=== PATIENT | female | born 1995 | race Two or more races ===

== ENCOUNTER 2020-12-09 10:47 | Emergency (ER) | payer BC ==
--- NOTE | 2020-12-09 11:38 | EDM.PDOC ---
ED HPI GENERAL MEDICAL PROBLEM - General Chief Complaint: TRAVEL PTA Problem Stated Complaint: 16 WEEKS PREG/FALL/CRAMPING AND PAIN Time Seen by Provider: 12/09/20 10:59 Source of Information: Reports: Patient, RN Notes Reviewed History Limitations: Reports: No Limitations - History of Present Illness INITIAL COMMENTS - FREE TEXT/NARRATIVE: Patient is a 25-year-old female who presents to the ED for evaluation of her fall and abdomen pain. Patient is 16 weeks , she is a A2 with 2 spontaneous miscarriages. Patient notes she is from [place], so her TRAVEL PTA resides there. Patient notes about 1 week ago, she fell while she was getting her child out of her car, and landed onto her butt. She notes that it hurts to have bowel movements after this, and she has been having lower abdomen cramping since then, and it seems to be getting worse. She has had no bleeding per vagina, and no abnormal discharge or clear liquids that have been leaking. Patient notes that the has been going well otherwise, vitals are stable at time of triage pulse is 75 bpm, temperature is 97.4 F, respiratory rate of 14, blood pressure on the low side of normal at 94/63, and the patient's O2 sats 100% on room air. heart tones were found to be 150 bpm by triage nurse. Patient denies any other sick-like symptoms, fever/chills, cough/shortness of breath, nausea/vomiting/diarrhea. Lower Abdomen Pain Score (Numeric/FACES): 8 - Related Data Allergies Allergy/AdvReac Type Severity Reaction Status Date / Time No Known Allergies Allergy Verified 12/09/20 10:59 Home Meds: Home Meds . [No Known Home Meds] 12/09/20 [History] Past Medical History TRAVEL PTA History: Reports: , Spontaneous (x2) : 5 Para: 2 - Past Surgical History Musculoskeletal Surgical History: Reports: Other (See Below) Other Musculoskeletal Surgeries/Procedures:: ORIF right wrist with hardware still in Social & Family History - Tobacco Use Tobacco Use Status *Q: Never Tobacco User - Caffeine Use Caffeine Use: Reports: None - Recreational Drug Use Recreational Drug Use: No ED ROS GENERAL - Review of Systems Review Of Systems: Comprehensive ROS is negative, except as noted in HPI. ED EXAM - Physical Exam Exam: See Below Exam Limited By: No Limitations General Appearance: Alert, WD/WN, No Apparent Distress Respiratory/Chest: No Respiratory Distress, Lungs Clear, Normal Breath Sounds, No Accessory Muscle Use, Chest Non-Tender Cardiovascular: Normal Peripheral Pulses, Regular Rate, Rhythm, No Edema GI/Abdominal Exam: Normal Bowel Sounds, Soft, No Distention, No Mass, Tender (generalized) Heart Tones: Present Heart Tones per Min: 150 Movement: Not Appreciated Neurological: Alert, Oriented, Normal Cognition, No Motor/Sensory Deficits Psychiatric: Normal Affect, Normal Mood Skin Exam: Warm, Dry, Intact, Normal Color, No Rash Course - Vital Signs Last Recorded V/S: Last Vital Signs Temp 97.4 F 12/09/20 10:59 Pulse 75 12/09/20 10:59 Resp 14 12/09/20 10:59 BP 94/63 12/09/20 10:59 Pulse Ox 100 12/09/20 10:59 - Orders/Labs/Meds Orders: Active Orders 24 hr Category Date Time Status OB Ltd 1 or More Fetus [US] Stat Exams 12/09/20 11:08 Ordered - Re-Assessments/Exams Free Text/Narrative Re-Assessment/Exam: 12/09/20 11:36 Patient presents to the ED for evaluation of her fall in . Running on the clinical assumption that she may have either broken or bruised her tailbone, I suspect that bowel movements hurt, and that she might be slightly constipated causing some of the cramping. Were able to find heart tones without issue. We will go ahead and get ultrasound for evaluation of the fetus at this time. I did discuss with her the value of stool softeners to make the stool more soft so that it doesn't hurt when she uses the bathroom. Patient verbalized understanding. 12/09/20 11:57 [facility] ultrasound report is back, fetus is alive with a gestational age of 16 weeks 1 day with a heart rate at about 160 bpm. There is a 4.3 x 1.1 x 0.7 cm hypoechoic area along the inferior aspect of the right side of the placenta suspicious for a perigestational hemorrhage or subchorionic hemorrhage. I will make the patient aware, to watch out for any sort of vaginal bleeding, and have her take it easy over the next few days, and again cautioned her to use stool softeners to make her stool soft. Departure - Departure Time of Disposition: 11:58 Disposition: Home, Self-Care 01 Condition: Good Clinical Impression: Pain in the coccyx Subchorionic hemorrhage in second trimester Qualifiers: Fetus number: single or unspecified fetus Qualified Code(s): O41.8X20 - Other specified disorders of amniotic fluid and membranes, second trimester, not applicable or unspecified - Discharge Information *PRESCRIPTION DRUG MONITORING PROGRAM REVIEWED*: No *COPY OF PRESCRIPTION DRUG MONITORING REPORT IN PATIENT GAYLA: No Instructions: Subchorionic Hematoma Referrals: PCP,Not In Area [Primary Care Provider] - Forms: ED Department Discharge Additional Instructions: You were evaluated in the ER today regarding your abdominal pain in . Your ultrasound demonstrated a normal fetus of gestational age of 16w1d with a heart rate of 160 bpm. There is also an area called a subchorionic hemorrhage, which is like a small blood clot within the uterus. Recommend that you do not lift anything heavier than a gallon of milk (5 lbs), do not engage in sexual activities, try to get as much pelvic rest as possible for the next few days. Please try not to exert yourself, rest and relax, and take it easy. If you should start bleeding through more than 1-2 maxi pads every couple hours, this would be cause for concern to return to the ER for immediate management. Regarding your tailbone pain, I highly recommend that you utilize stool softeners for the next few weeks to make having a bowel movement easier; It is likely that the fall you had last week bruised your tailbone, which in turn causes you pain, and you could be somewhat constipated-causing the abdomen cramping/discomfort. Stool softeners such as Miralax, Dulcolax or Colace would be sufficient. You may also utilize 500mg Tylenol (acetaminophen) Q6H for pain management. Do not exceed 4000mg Tylenol in a 24 hour time span. Please follow up with your TRAVEL PTA at your next scheduled appointment. Please return to the ED at any time if your symptoms change or worsen. Sepsis Event Note (ED) - Evaluation Sepsis Screening Result: No Definite Risk - Focused Exam Vital Signs: Vital Signs Temp Pulse Resp BP Pulse Ox 12/09/20 10:59 97.4 F 75 14 94/63 100 - My Orders Last 24 Hours: My Active Orders 12/09/20 11:08 OB Ltd 1 or More Fetus [US] Stat - Assessment/Plan Last 24 Hours: My Active Orders 12/09/20 11:08 OB Ltd 1 or More Fetus [US] Stat
--- NOTE | 2020-12-10 08:50 | US ---
Obstetrical ultrasound: Multiple real-time images were obtained transabdominally. Comparison: No previous abdominal imaging is available. Findings: Working GENEVIEVE: None provided Current ultrasound: GENEVIEVE 05/25/21, gestational age 16 weeks 1 day presentation: Mobile Placenta: Posterior with no findings of placenta previa Amniotic fluid: NISREEN 14.9 cm Other findings: Hypoechoic area is identified inferior to the right placenta measuring 42.7 x 11.3 x 7.0 mm which is most likely due to a subchorionic hemorrhage. Measurements: [place]-rump length: 9.85 cm - 15 weeks 5 days BPD: 3.27 cm - 16 weeks 2 days Head circumference: 12.09 cm - 16 weeks 1 day Abdominal circumference: 9.96 cm - 16 weeks 0 days Femur length: 7.01 cm - 16 weeks 0 days Estimated weight: 142 g (0 lbs. 5 oz.), estimated weight at the 32nd percentile for age by current ultrasound Heart rate: 160 bpm Cervical length: 5.2 cm Impression: 1. Single intrauterine gestation. presentation is mobile. Dates as noted above. 2. Subchorionic hemorrhage is noted. Measurements as noted above. 3. No other abnormality is definitely seen at this time. Diagnostic code #3 I agree with preliminary report from [facility], finalized on 12/09/20, 12:53 PM [employer]
== END 2020-12-09 12:15 | disposition home or self-care (01) ==
LOC: JD.ED 10:47
DX: O20.8 Other hemorrhage in early pregnancy (principal); O99.891 Other specified diseases and conditions complicating pregnancy; M53.3 Sacrococcygeal disorders, not elsewhere classified; Z3A.16 16 weeks gestation of pregnancy
CPT/HCPCS: 76815; 76815-26; 99283; 99284-25

== ENCOUNTER 2023-11-24 16:17 | Emergency (ER) | payer BC ==
[2023-11-24] MEDS ORDERED: Sodium Chloride 0.9% 10 ML Syringe FLUSH PRN (16:48)
[2023-11-24] MEDS ORDERED: Sodium Chloride 0.9% 1,000 ML IV ONE (16:48)
[2023-11-24] MEDS ORDERED: Metoclopramide 10 MG/2 ML SDV IVPUSH ONE (16:49)
[2023-11-24] MEDS ORDERED: Ketorolac 30 MG/ML SDV IVPUSH ONE (16:49)
[2023-11-24] MEDS ORDERED: diphenhydrAMINE 50 MG/ML SDV IVPUSH ONE (16:49)
[2023-11-24 17:48] LABS: BASOPHILS PERCENT AUTO 0.4 % (0.0-1.0); EOSINOPHILS PERCENT AUTO 0.4 % (0.0-6.0); HEMATOCRIT 42.5 % (37.0-47.0); IMMATURE GRAN ABSOLUTE AUTO 0.01 K/mm3 (0.00-0.05); IMMATURE GRAN PERCENT AUTO 0.2 % (0.0-0.4); LYMPHOCYTES ABSOLUTE AUTO 0.7 K/mm3 (1.0-4.8); LYMPHOCYTES PERCENT AUTO 15.7 % (24.0-44.0); MEAN CORPUSCULAR HEMOGLOBIN 28.6 pg (28.0-32.0); MEAN CORPUSCULAR HGB CONC 32.9 g/dl (32.0-36.0); MEAN CORPUSCULAR VOLUME 86.9 fl (83.0-99.0); MONOCYTES ABSOLUTE AUTO 0.5 K/mm3 (0.0-0.8); MONOCYTES PERCENT AUTO 10.1 % (0.0-8.0); NEUTROPHILS ABSOLUTE AUTO 3.3 K/mm3 (1.8-7.7); NEUTROPHILS PERCENT AUTO 73.2 % (41.0-71.0); PLATELET COUNT,PLT 238 K/mm3 (150-400); RED BLOOD CELL COUNT 4.89 M/mm3 (4.10-5.30); WHITE BLOOD CELL COUNT,WBC 4.45 K/mm3 (3.9-11.3)
[2023-11-24 18:20] LABS: CORONAVIRUS COVID-19 NAA NEGATIVE (NEGATIVE); INFLUENZA A NAA NEGATIVE (NEGATIVE); RESPIRATORY SYNCYTIAL VIR NAA NEGATIVE (NEGATIVE)
[2023-11-24 18:25] LABS: ALANINE AMINOTRANSFERASE,ALT 21 U/L (14-59); ALKALINE PHOSPHATASE 88 U/L (46-116); ANION GAP 12.4 (5-15); ASPARTATE AMNIOTRANSFERASE,AST 17 U/L (15-37); BILIRUBIN TOTAL 0.2 mg/dL (0.2-1.0); BLOOD UREA NITROGEN,BUN 10 mg/dL (7-18); BUN/CREATININE RATIO 12.5 (14-18); CALCIUM 8.7 mg/dL (8.5-10.1); CARBON DIOXIDE,CO2 27 mEq/L (21-32); CHLORIDE,CL 101 mEq/L (98-107); CREATININE 0.8 mg/dL (0.55-1.02); EST CRCL DRUG DOSING (CG) 99.76 mL/min; ESTIMATED GFR 104 mL/min (>60); GLUCOSE RANDOM 94 mg/dL (70-99); HCG QUANTITATIVE < 1.0 mIU/mL; POTASSIUM,K 3.4 mEq/L (3.5-5.1); PROTEIN TOTAL,TP 8.2 g/dl (6.4-8.2); SODIUM,NA 137 mEq/L (136-145)
== END 2023-11-24 19:05 | disposition home or self-care (01) ==
LOC: JD.ED 16:17
DX: J10.1 Influenza due to other identified influenza virus with other respiratory manifestations (principal); Z91.048 Other nonmedicinal substance allergy status; Z79.899 Other long term (current) drug therapy
CPT/HCPCS: 0241U; 36415; 80053; 84702; 85025; 96361; 96374; 96375; 99284; J1200; J1885; J2765; J7030; 99283

== ENCOUNTER 2023-11-26 19:41 | Emergency (ER) | payer BC ==
[2023-11-26] MEDS ORDERED: Sodium Chloride 0.9% 1,000 ML IV ONE (20:15)
[2023-11-26] MEDS ORDERED: Famotidine 20 MG/2 ML SDV IVPUSH ONE (20:16)
[2023-11-26] MEDS ORDERED: Acetaminophen 325 MG Tab PO ONE (20:17)
[2023-11-26 20:58] LABS: BASOPHILS PERCENT AUTO 0.4 % (0.0-1.0); EOSINOPHILS PERCENT AUTO 0.2 % (0.0-6.0); HEMATOCRIT 44.1 % (37.0-47.0); HEMOGLOBIN 14.5 gm/dl (12.0-16.0); IMMATURE GRAN ABSOLUTE AUTO 0.01 K/mm3 (0.00-0.05); IMMATURE GRAN PERCENT AUTO 0.2 % (0.0-0.4); LYMPHOCYTES ABSOLUTE AUTO 1.3 K/mm3 (1.0-4.8); LYMPHOCYTES PERCENT AUTO 25.5 % (24.0-44.0); MEAN CORPUSCULAR HEMOGLOBIN 28.3 pg (28.0-32.0); MEAN CORPUSCULAR HGB CONC 32.9 g/dl (32.0-36.0); MEAN CORPUSCULAR VOLUME 86.1 fl (83.0-99.0); MEAN PLATELET VOLUME 8.8 fl (9.4-12.3); MONOCYTES ABSOLUTE AUTO 0.3 K/mm3 (0.0-0.8); MONOCYTES PERCENT AUTO 6.5 % (0.0-8.0); NEUTROPHILS ABSOLUTE AUTO 3.4 K/mm3 (1.8-7.7); NEUTROPHILS PERCENT AUTO 67.2 % (41.0-71.0); PLATELET COUNT,PLT 220 K/mm3 (150-400); RED BLOOD CELL COUNT 5.12 M/mm3 (4.10-5.30); WHITE BLOOD CELL COUNT,WBC 5.06 K/mm3 (3.9-11.3)
[2023-11-26 21:13] LABS: A/G RATIO 0.9 (1-2); ALBUMIN 3.9 g/dl (3.4-5.0); ANION GAP 16.6 (5-15); BILIRUBIN TOTAL 0.2 mg/dL (0.2-1.0); BUN/CREATININE RATIO 13.8 (14-18); CALCIUM 8.6 mg/dL (8.5-10.1); CREATININE 0.8 mg/dL (0.55-1.02); EST CRCL DRUG DOSING (CG) 84.28 mL/min; POTASSIUM,K 3.6 mEq/L (3.5-5.1); PROTEIN TOTAL,TP 8.1 g/dl (6.4-8.2)
== END 2023-11-26 22:06 | disposition home or self-care (01) ==
LOC: JD.ED 19:41
DX: J10.1 Influenza due to other identified influenza virus with other respiratory manifestations (principal); Z79.899 Other long term (current) drug therapy; Z91.048 Other nonmedicinal substance allergy status
CPT/HCPCS: 36415; 80053; 84703; 85025; 96361; 96374; 99283; 99284-25; A9270-GY; J3490; J7030

== ENCOUNTER 2024-03-05 20:11 | Emergency (ER) | payer SELFPAY | END 2024-03-05 23:04 | disposition home or self-care (01) | LOC: JD.ED 20:11 | DX: O03.9 Complete or unspecified spontaneous abortion without complication (principal); Z88.8 Allergy status to other drugs, medicaments and biological substances; Z79.899 Other long term (current) drug therapy; Z3A.01 Less than 8 weeks gestation of pregnancy | CPT/HCPCS: 36415; 76817; 76817-26; 84702; 99283; 99284 ==

== ENCOUNTER 2025-02-12 06:18 | Inpatient (IN) | payer MEDICAID, OTHER ==
[2025-02-12] MEDS ORDERED: Acetaminophen 325 MG Tab PO PRN (06:52)
[2025-02-12] MEDS ORDERED: Ondansetron 4 MG/2 ML SDV IVPUSH PRN (06:52)
[2025-02-12] MEDS ORDERED: Lidocaine 1% 50 ML MDV INJECT PRN (06:52)
[2025-02-12] MEDS ORDERED: Nalbuphine 10 MG/1 ML Vial IVPUSH PRN (06:52)
[2025-02-12] MEDS ORDERED: Calcium Carbonate 500 MG Tab.Chew PO PRN (06:52)
[2025-02-12] MEDS: Lactated Ringers 1,000 ML IV SCH (07:09)
[2025-02-12] MEDS ORDERED: ePHEDrine 50 MG/ML SDV IVPUSH PRN (07:21)
[2025-02-12] MEDS ORDERED: diphenhydrAMINE 50 MG/ML SDV IVPUSH PRN (07:21)
[2025-02-12] MEDS: Bupivacaine/fentaNYL/NS 100 ML Bag EPIDUR PRN (07:29)
[2025-02-12 08:10] LABS: BASOPHILS PERCENT AUTO 0.4 % (0.0-1.0); EOSINOPHILS ABSOLUTE AUTO 0.1 K/mm3 (0.0-0.4); EOSINOPHILS PERCENT AUTO 0.6 % (0.0-6.0); HEMATOCRIT 35.2 % (37.0-47.0); HEMOGLOBIN 10.7 gm/dl (12.0-16.0); IMMATURE GRAN ABSOLUTE AUTO 0.06 K/mm3 (0.00-0.05); IMMATURE GRAN PERCENT AUTO 0.7 % (0.0-0.4); LYMPHOCYTES ABSOLUTE AUTO 1.5 K/mm3 (1.0-4.8); LYMPHOCYTES PERCENT AUTO 18.9 % (24.0-44.0); MEAN CORPUSCULAR HEMOGLOBIN 23.6 pg (28.0-32.0); MEAN CORPUSCULAR HGB CONC 30.4 g/dl (32.0-36.0); MEAN CORPUSCULAR VOLUME 77.5 fl (83.0-99.0); MEAN PLATELET VOLUME 10.3 fl (9.4-12.3); MONOCYTES ABSOLUTE AUTO 0.5 K/mm3 (0.0-0.8); MONOCYTES PERCENT AUTO 5.6 % (0.0-8.0); NEUTROPHILS ABSOLUTE AUTO 5.9 K/mm3 (1.8-7.7); NEUTROPHILS PERCENT AUTO 73.8 % (41.0-71.0); NRBC ABSOLUTE 0.02 (0.00-0.02); NRBC PERCENT 0.2 % (0.0-0.2); PLATELET COUNT,PLT 250 K/mm3 (150-400); RED BLOOD CELL COUNT 4.54 M/mm3 (4.10-5.30); WHITE BLOOD CELL COUNT,WBC 8.04 K/mm3 (3.9-11.3)
[2025-02-12] MEDS ORDERED: Oxytocin/0.9 % Sodium Chloride 30 UNIT/500 ML BAG IV SCH (08:15)
[2025-02-12] MEDS: Oxytocin/0.9 % Sodium Chloride 30 UNIT/500 ML BAG IV SCH (10:40)
[2025-02-12] MEDS: Ibuprofen 600 MG Tab PO SCH (15:41)
[2025-02-12] MEDS: Benzocaine/Menthol 20%-0.5% Spray 78 GM Cannister TOP PRN (16:03)
[2025-02-12] MEDS: Witch Hazel Medicated Pads 40/Jar TOP PRN (16:03)
[2025-02-12] MEDS: Acetaminophen 325 MG Tab PO PRN (20:11)
[2025-02-13] MEDS: Docusate Sodium 100 MG Cap PO PRN (07:33)
[2025-02-13 07:57] LABS: HEMATOCRIT 31.6 % (37.0-47.0); HEMOGLOBIN 9.4 gm/dl (12.0-16.0); MEAN CORPUSCULAR HEMOGLOBIN 23.6 pg (28.0-32.0); MEAN CORPUSCULAR HGB CONC 29.7 g/dl (32.0-36.0); MEAN CORPUSCULAR VOLUME 79.2 fl (83.0-99.0); MEAN PLATELET VOLUME 10.4 fl (9.4-12.3); PLATELET COUNT,PLT 182 K/mm3 (150-400); RED BLOOD CELL COUNT 3.99 M/mm3 (4.10-5.30); WHITE BLOOD CELL COUNT,WBC 7.99 K/mm3 (3.9-11.3)
[2025-02-13] MEDS: Polyethylene Glycol 3350 Powder 17 GM Packet PO ONE (08:17)
[2025-02-13] MEDS: Ibuprofen 600 MG Tab PO SCH (11:44)
[2025-02-14] MEDS: Measles, Mumps & Rubella Vaccine 0.5 ML SDV SUBCUT ONE (10:53)
== END 2025-02-14 11:40 | disposition home or self-care (01) | DRG 807 ==
LOC: JD.OBCHECK 06:18 → JD.OB 06:53 → JD.OBCHECK 07:21 → OBSVTOIN 12:52 → JD.OB 12:53
PROVIDERS: ADMIT Obstetrics & Gynecology; ATTEND Obstetrics & Gynecology
PROC: 10907ZC Drainage of Amniotic Fluid, Therapeutic from Products of Conception, Via Natural or Artificial Opening (ICD-10-PCS; principal; 2025-02-12)
PROC: 3E0234Z Introduction of Serum, Toxoid and Vaccine into Muscle, Percutaneous Approach (ICD-10-PCS; principal; 2025-02-12)
PROC: 10E0XZZ Delivery of Products of Conception, External Approach (ICD-10-PCS; principal; 2025-02-12)
PROC: 3E0R3BZ Introduction of Anesthetic Agent into Spinal Canal, Percutaneous Approach (ICD-10-PCS; principal; 2025-02-12)
DX: O99.02 Anemia complicating childbirth (principal); Z37.0 Single live birth; O99.344 Other mental disorders complicating childbirth; O99.214 Obesity complicating childbirth; Z23 Encounter for immunization; Z98.890 Other specified postprocedural states; Z86.16 Personal history of COVID-19; Z79.899 Other long term (current) drug therapy; Z3A.37 37 weeks gestation of pregnancy
CPT/HCPCS: 36415; 51702; 59025; 59409; 85025; 85027; 86592; 86850; 86900; 86901; 90471; 90707; A9270-GY; J3490; J7120; J7999

== ENCOUNTER 2025-09-27 09:25 | Day surgery (SDC) | payer OTHER, MEDICAID ==
[~2025-09-27 09:25] MED LIST: Sodium Chloride 0.9% 10 ML Syringe FLUSH PRN; Sodium Chloride 0.9% 10 ML Syringe FLUSH SCH
[2025-09-27] MEDS ORDERED: propofoL 500 MG/50 ML 50 ML ONE (09:41)
[2025-09-27] MEDS ORDERED: Ondansetron 4 MG/2 ML SDV ONE (09:43)
[2025-09-27] MEDS ORDERED: Dexamethasone 4 MG/ML 5 ML MDV ONE (09:43)
[2025-09-27] MEDS ORDERED: Ketorolac 30 MG/ML SDV ONE (09:43)
[2025-09-27] MEDS ORDERED: dexmedeTOMIDine HCl 200 MCG/2 ML SDV ONE (09:48)
[2025-09-27] MEDS ORDERED: fentaNYL 250 MCG/5 ML SDV ONE (09:49)
[2025-09-27] MEDS: Lactated Ringers 1,000 ML IV SCH (09:50)
[2025-09-27] MEDS: EPINEPHrine 1 MG/ML SDV ONE (10:27)
[2025-09-27] MEDS ORDERED: Propofol 200 MG/20 ML SDV ONE (10:38)
[2025-09-27] MEDS ORDERED: fentaNYL 100 MCG/2 ML SDV IVPUSH PRN (11:16)
[2025-09-27] MEDS: Ondansetron 4 MG/2 ML SDV IVPUSH PRN (14:15)
== END 2025-09-27 14:40 | disposition home or self-care (01) ==
LOC: JD.SDS 09:25
PROVIDERS: ATTEND Surgery
DX: C44.599 Other specified malignant neoplasm of skin of other part of trunk (principal); K42.9 Umbilical hernia without obstruction or gangrene; E66.9 Obesity, unspecified; Z88.8 Allergy status to other drugs, medicaments and biological substances; Z68.35 Body mass index [BMI] 35.0-35.9, adult; Z79.899 Other long term (current) drug therapy
CPT/HCPCS: 11603; 49591; 81025; J0169; J0665; J0690; J1100; J1885; J2405; J2704; J3010; J7120; 00790; J1171; J3490